=== PATIENT | female | born 1950 | race Caucasian/White ===

== ENCOUNTER → 2017-06-09 | Outpatient (CLI) | payer OTHER, MEDICARE ==
[2017-06-09 12:25] LABS: ALBUMIN 4.6 g/dL (3.5-5.0); CALCIUM 9.4 mg/dL (8.4-10.2); MAGNESIUM 2.2 mg/dL (1.6-2.3)
== END ==
LOC: OD 10:41
PROVIDERS: ATTEND Otolaryngology
DX: C73 Malignant neoplasm of thyroid gland (principal)
CPT/HCPCS: 36415; 82040; 82310; 83735; 83970; 84100

== ENCOUNTER 2017-06-10 06:06 | Inpatient (IN) | payer OTHER, MEDICARE ==
[~2017-06-10 06:06] MED LIST: CEFAZOLIN 1 GM/D5W RTU 1 GM/50 ML RTUPB IV PRN; LACTATED RINGERS 1000 ML IV PRN; LIDOCAINE 0.5% INJ-PF (5 MG/ML) 50 ML SDV SUBCUT PRN
[2017-06-10] MEDS ORDERED: MIDAZOLAM 2 MG/2 ML INJ ONE (06:42)
[2017-06-10] MEDS ORDERED: FENTANYL CITRATE INJ/PF 250 MCG/5 ML AMPULE ONE (06:42)
[2017-06-10] MEDS ORDERED: DEXAMETHASONE SOD PHOSPHATE INJ 4 MG/1 ML VIAL ONE (06:42)
[2017-06-10] MEDS ORDERED: ONDANSETRON HCL INJ/PF 4 MG/2 ML SDV ONE (06:42)
[2017-06-10] MEDS ORDERED: PROPOFOL INJ 200 MG/20 ML VIAL IV ONE (06:43)
[2017-06-10] MEDS ORDERED: MORPHINE SULFATE 10 MG/ML INJ ONE (06:43)
[2017-06-10] MEDS ORDERED: ACETAMINOPHEN 100 ML IV ONE (06:43)
[2017-06-10] MEDS: LIDOCAINE 2%/EPINEPHRINE INJ 1.7 ML CARTRIDGE ONE ×2 (07:42→08:12)
[2017-06-10] MEDS ORDERED: DIPHENHYDRAMINE HCL 50 MG/ML VIAL IV PRN ×2 (08:56→13:08)
[2017-06-10] MEDS ORDERED: FENTANYL CITRATE INJ/PF 100 MCG/2 ML AMPUL IV PRN ×6 (08:56→13:08)
[2017-06-10] MEDS ORDERED: PROMETHAZINE HCL INJ 25 MG/1 ML VIAL IV PRN ×4 (08:56→13:08)
[2017-06-10] MEDS ORDERED: ONDANSETRON HCL INJ/PF 4 MG/2 ML SDV IV PRN ×2 (08:56→12:53)
[2017-06-10] MEDS ORDERED: MEPERIDINE HCL/PF INJ 25 MG/1 ML DISP.SYRIN IV PRN ×2 (08:56→13:08)
[2017-06-10] MEDS ORDERED: MORPHINE SULFATE 10 MG/ML INJ IV PRN ×3 (08:56→13:08)
[2017-06-10] MEDS ORDERED: RINGERS SOLUTION,LACTATED 1,000 ML IV PRN (12:53)
[2017-06-10] MEDS ORDERED: HYDROCODONE/ACETAMINOPHEN 5-325 MG TABLET PO PRN (12:53)
[2017-06-10] MEDS ORDERED: OXYCODONE-ACETAMINOPHEN 5-325 MG TABLET PO PRN ×2 (13:08)
[2017-06-10 13:46] LABS: ALBUMIN 4.1 g/dL (3.5-5.0); MAGNESIUM 1.9 mg/dL (1.6-2.3); PHOSPHORUS 3.8 mg/dL (2.5-4.5)
--- NOTE | 2017-06-10 21:36 | PDOC PROGRESS REPORT ---
Subjective Progress Note for:: 06/10/17 - Postop check Subjective:: Patient status post total thyroidectomy for FNAB diagnosis of right thyroid nodule papillary thyroid carcinoma. The patient is doing well postop, reasonable voice quality, taking p.o. with no aspiration symptoms, and no paresthesias. Slight nausea noted when attempting to get out of bed, but no emesis. Physical Exam Vital Signs: Temp Pulse Resp BP Pulse Ox 98.3 F 75 16 123/68 97 06/10/17 17:25 06/10/17 17:25 06/10/17 16:21 06/10/17 17:25 06/10/17 17:25 Intake & Output 06/09/17 06/10/17 06/11/17 06:59 06:59 06:59 Intake Total 0 2060 Output Total 475 Balance 0 1585 Weight 61 kg General appearance: PRESENT: no acute distress Neck exam: PRESENT: other - Flaps flat and Steri-Strips intact Results Laboratory Results: 06/10/17 06/10/17 06/10/17 07:40 13:12 13:12 Phosphorus 3.8 Magnesium 1.9 Albumin 4.1 PTH Intact 96.5 H 8.7 L Assessment & Plan - Diagnosis (1) Thyroid cancer Is this a current diagnosis for this admission?: Yes Plan: Stat p.m. calcium level pending. Will continue with current medical management and postoperative observation. Care plan was discussed with nursing. - Time Time Spent with patient: Less than 15 minutes Anticipated discharge: Home Within: within 48 hours
[2017-06-11 07:40] LABS: ALBUMIN 4.1 g/dL (3.5-5.0); CALCIUM 8.1 mg/dL (8.4-10.2); MAGNESIUM 1.9 mg/dL (1.6-2.3); PHOSPHORUS 4.8 mg/dL (2.5-4.5)
[2017-06-11] MEDS ORDERED: CALCIUM CARBONATE 250 MG/VITAMIN D3 125 UNIT TABLET PO ONE (08:45)
[2017-06-11] MEDS ORDERED: ROCURONIUM BROMIDE INJ 50 MG/5 ML VIAL IV ONE (11:59)
[2017-06-11] MEDS ORDERED: SUCCINYLCHOLINE CHLORIDE INJ 200 MG/10 ML VIAL ONE (11:59)
[2017-06-11] MEDS: CALCIUM CARBONATE 250 MG/VITAMIN D3 125 UNIT TABLET PO SCH ×2 (12:17→16:27)
[2017-06-11 17:04] LABS: ALBUMIN 3.9 g/dL (3.5-5.0); CALCIUM 8.3 mg/dL (8.4-10.2); MAGNESIUM 1.7 mg/dL (1.6-2.3); PHOSPHORUS 4.6 mg/dL (2.5-4.5)
[2017-06-11 18:25] VITALS: BP 113/67
--- NOTE | 2017-06-11 21:58 | OPERATIVE REPORT E ---
Operative Report NAME: PANDA SMITH : 1950 AGE: 66Y DATE OF SURGERY: 06/10/2017 ROOM: 530 PREOPERATIVE DIAGNOSIS: RIGHT THYROID NODULE WITH FINDINGS CONSISTENT WITH PAPILLARY THYROID CANCER. POSTOPERATIVE DIAGNOSIS: RIGHT THRYOID NODULE WITH FINDINGS CONSISTENT WITH PAPILLARY THYROID CANCER. OPERATION: 1. Total thyroidectomy. 2. Intraoperative NIM monitoring over 4 hours. SURGEON: NATE SALCEDO D.O. ANESTHESIA: General endotracheal tube. ANESTHESIA STAFF: FLAKO Senior. ESTIMATED BLOOD LOSS: 25 mL. COMPLICATIONS: None. DRAINS: None. SPONGE COUNT: Verified. NEEDLE COUNT: Verified. MATERIALS REPORTED SPECIMEN: Total thyroid gland with marking stitch at the right superior lobe. FINDINGS: 1. Total thyroid gland with right-sided nodule. 2. Bilateral parathyroid gland prospects were identified and preserved. 3. Bilateral recurrent laryngeal nerves were identified and preserved and stimulated adequately at 0.5 mA at the end of the case. INDICATIONS: This is a 66-year-old white female who was seen and evaluated in the [facility]. The patient had been referred for and she complained of a recent history of a right thyroid nodule being identified. She had undergone thyroid ultrasound with the nodule measuring 1.7 cm with micro and macro calcifications present. She also underwent a fine needle aspiration biopsy with findings consistent with a papillary thyroid cancer, a [place] 6 category. The patient is also planning to depart the [facility] in July 2017 to relocate to [place]. After extensive discussion with the patient, a plan was made to proceed with a total thyroidectomy. The procedure and all of his risks and complications were all discussed in detail with the patient. She voiced an understanding of the described surgical plan, agreed to proceed and consent was obtained. PROCEDURE: The patient was taken to the main operating room and placed on the operating room table in the supine position. Appropriate monitors were placed. Using mask and IV access, general anesthesia was established. The patient was next transorally intubated with NIM endotracheal tube. The NIM monitor and leads were set up and the equipment tested appropriately before beginning the case. The patient's neck had been previously marked and this location was injected with Lidocaine with epinephrine. The patient was next prepped and draped in a sterile fashion for thyroid surgery. The previously marked incision site was sharply incised down through the level of the platysma. Flaps were elevated. The strap muscles were divided in the midline and the thyroid gland was exposed. The left thyroid lobe was clearly identified and mobilized. The superior and inferior thyroid vasculature was addressed utilizing the Thunderbeat and bipolar electrocautery with vessels sharply divided. The parathyroid gland prospects were identified and preserved as was the left recurrent laryngeal nerve which stimulated adequately at 0.5 mA. The thyroid glad was freed from Bautista's ligament as well as the anterior tracheal wall. Attention was turned to the right side which was addressed in a similar fashion as was the superior and inferior wall vasculature. Right parathyroid gland prospects were identified and preserved as was the right recurrent laryngeal nerve which also stimulated appropriately at 0.5 mA. There was a small pyramidal lobe that was identified with surrounding small lymph nodes which were removed with the thyroid gland specimen. The gland was marked with a marking suture at the right superior lobe and was passed off for permanent pathology evaluation. There was one additional inferiorly located specimen that appeared consistent with an ischemic appearing lymph node or possibly a lymph node affected by papillary thyroid cancer and this was removed for permanent pathology evaluation. At this point, the wound bed was thoroughly irrigated and additional bipolar electrocautery was performed. There was adequate hemostasis noted. Next, the strap muscles were reapproximated in the midline with 5-0 Vicryl suture. The platysma layer was reapproximated with 5-0 Vicryl suture as were the subcutaneous/deep dermal layers. At this point, 6-0 Prolene in a continuous deep dermal fashion was placed. The skin was next cleaned and dried followed by placement of Mastisol and Steri-Strips. The patient was allowed to emerge from general anesthesia and was then extubated in the main operating room without difficulty. She was then transported to the post anesthesia recovery unit in stable condition. There were no complications. DICTATING PHYSICIAN: NATE SALCEDO D.O. [id number] PHY#: [id number] ID: [id number] JOB#: [id number] ACCT: [id number] cc:NATE SALCEDO D.O. > MTDD
== END 2017-06-11 19:00 | disposition home or self-care (01) | DRG 627 ==
LOC: INOR 06:06 → EDSTATUS 07:30 → 5 14:30
PROVIDERS: ADMIT Otolaryngology; ATTEND Otolaryngology
PROC: 07B10ZX Excision of Right Neck Lymphatic, Open Approach, Diagnostic (ICD-10-PCS; 2017-06-10)
PROC: 0GTK0ZZ Resection of Thyroid Gland, Open Approach (ICD-10-PCS; principal; 2017-06-10 07:30)
DX: C73 Malignant neoplasm of thyroid gland (principal); Z82.49 Family history of ischemic heart disease and other diseases of the circulatory system; E03.9 Hypothyroidism, unspecified; Z79.899 Other long term (current) drug therapy
CPT/HCPCS: 320; 36415; 82040; 82310; 83735; 83970; 84100; 88307; J0131; J0330; J0690; J1100; J2250; J2270; J2405; J2704; J3010; J3490

== ENCOUNTER → 2017-06-12 | Outpatient (CLI) | payer OTHER, MEDICARE ==
[2017-06-12 15:49] LABS: ALBUMIN 4.4 g/dL (3.5-5.0); CALCIUM 8.6 mg/dL (8.4-10.2); MAGNESIUM 1.5 mg/dL (1.6-2.3); PHOSPHORUS 5.9 mg/dL (2.5-4.5)
== END ==
LOC: OD 14:56
PROVIDERS: ATTEND Otolaryngology
DX: E03.9 Hypothyroidism, unspecified (principal)
CPT/HCPCS: 36415; 82040; 82310; 83735; 84100

== ENCOUNTER → 2017-06-23 | Outpatient (CLI) | payer OTHER, MEDICARE ==
[2017-06-23 16:23] LABS: ALBUMIN 4.7 g/dL (3.5-5.0); CALCIUM 10.3 mg/dL (8.4-10.2); MAGNESIUM 1.7 mg/dL (1.6-2.3)
== END ==
LOC: OD 15:27
PROVIDERS: ATTEND Otolaryngology
DX: E03.9 Hypothyroidism, unspecified (principal)
CPT/HCPCS: 36415; 82040; 82310; 83735; 83970; 84100